=== PATIENT | female | born 2000 | race Caucasian/White ===

== ENCOUNTER 2021-12-08 11:42 | Emergency (ER) | payer BC, SELFPAY ==
[2021-12-08 11:44] VITALS: BP 151/82; PULSE 100; RESP 16; TEMP 35.9; O2SAT 100
[2021-12-08 12:02] VITALS: O2SAT 100
--- NOTE | 2021-12-08 12:08 | ED.URI ---
HPI - URI/Sore Throat General Chief Complaint: Upper Respiratory Infection Stated Complaint: UPPER RESP S/SX Time Seen by Provider: 12/08/21 11:49 Source: patient Mode of arrival: ambulatory Limitations: no limitations History of Present Illness HPI Narrative: This is a 21 year old female that presents to the ER for cold symptoms present over the last couple of days. Reports cough, sore throat, congestion, and fatigue. She is not COVID vaccinated. Reports possible exposure to her coworkers. Denies fever, chest pain or shortness of breath. Review of Systems Review of Systems: CONSTITUTIONAL: Denies fever ENT: Reports congestion, sore throat CARDIOVASCULAR: Denies chest pain RESPIRATORY: Denies dyspnea. All systems reviewed & are unremarkable except as noted in HPI and below PMFSH Past Medical History Medical History (Updated 12/08/21 @ 13:07 by Saundra Zambrano PA-C) No active medical problems Social History Social History (Updated 12/08/21 @ 12:11 by Saundra Zambrano PA-C) Smoking status: Current every day smoker Exam Narrative: GENERAL: Well-appearing, well-nourished, and in no acute distress. HEAD: Normocephalic, atraumatic. EYES: EOMI. ENT: Nares clear, no rhinorrhea or epistaxis. Mucous membranes moist. Oropharynx without tonsillar hypertrophy exudate or other lesions. Bilateral TMs pearly san non-bulging NECK: Supple. No adenopathy or masses. CHEST: Clear to auscultation. No respiratory distress. No wheezes rales or rhonchi HEART: Regular rate and rhythm. No murmur heard. Normal peripheral pulses. EXTREMITIES: Normal range of motion. No edema. SKIN: Warm, dry, no rash. NEURO: No focal deficits. Alert and oriented x3. PSYCH: Normal mood and affect Course Vital Signs Vital signs: Vital Signs Temperature 96.7 F L 12/08/21 11:44 Pulse Rate 100 12/08/21 11:44 Respiratory Rate 16 12/08/21 11:44 Blood Pressure 151/82 H 12/08/21 11:44 Pulse Oximetry 100 12/08/21 11:44 Temperature 96.7 F L 12/08/21 11:44 Pulse Rate 100 12/08/21 11:44 Respiratory Rate 16 12/08/21 11:44 Blood Pressure 151/82 H 12/08/21 11:44 Pulse Oximetry 100 12/08/21 12:02 MDM - URI/Sore Throat MDM Narrative Medical decision making narrative: Patient presents to the ER for cold symptoms present over the last couple of days. She is afebrile and nontoxic-appearing. Lungs are clear on exam. Oxygen saturation is normal on room air. Influenza screen is negative. SARS-CoV-2 was sent. Patient was educated on care of viral infection. She is to follow-up with primary care doctor. She was given warnings to return to the ER Lab Data Attestation: I reviewed the patient's lab results. Labs: Lab Results 12/08/21 Range/Units 12:07 SARS-CoV-2 RNA (RT-PCR) Pending Influenza A Screen Negative Reference Range: Negative Influenza B Screen Negative Reference Range: Negative Critical Care Time Critical Care Time Critical Care Time: No Discharge Plan Discharge Clinical Impression: Person under investigation for COVID-19 Upper respiratory infection Qualifiers: URI type: unspecified viral URI Qualified Code(s): J06.9 - Acute upper respiratory infection, unspecified Patient Disposition: Home, Self-Care Condition: Stable Instructions: Viral Syndrome (ED), COVID-19 (Coronavirus Disease 2019) (ED) Additional Instructions: Return to the emergency department for worsening symptoms, or any other concerns Remain well-hydrated, get plenty of rest. Take Tylenol or Motrin [id number] for pain as needed. Flonase for nasal congestion. Zyrtec for runny nose. Lozenges or Chloraseptic spray for sore throat. You were tested today for coronavirus. It is important that you remain self isolated. Your results will likely be back tomorrow Follow up with primary care doctor Pablo
[2021-12-09 13:26] LABS: SARS-CoV-2 RNA PCR Negative
== END 2021-12-08 13:23 | disposition home or self-care (01) ==
PROVIDERS: Physician Assistant; Emergency Provider Emergency Medicine
DX: J06.9 Acute upper respiratory infection, unspecified (principal); Z20.822 Contact with and (suspected) exposure to COVID-19; F17.200 Nicotine dependence, unspecified, uncomplicated
CPT/HCPCS: 87804; 99283; C9803; U0003; U0005

== ENCOUNTER 2022-02-07 06:16 | Emergency (ER) | payer BC, SELFPAY ==
[2022-02-07] VITALS (34 sets, daily range): BP systolic 79–128; BP diastolic 59–91; PULSE 54–97; RESP 7–33; TEMP 36.8; O2SAT 98–100
[2022-02-07 06:54] LABS: Basophils Absolute Auto 0.1 K/mm3 (0.0-0.1); Basophils Percent Auto 0.5 % (0.2-1.2); Eosinophils Absolute Auto 0.2 K/mm3 (0-0.3); Eosinophils Percent Auto 0.9 % (0-4.4); Hematocrit 49.1 % (37.0-47.0); Hemoglobin 15.8 g/dL (12.0-15.0); Immature Granulocyte Absolute 0.08 K/mm3 (0.00-0.031); Immature Granulocyte Percent A 0.5 % (0-0.5); Lymphocytes Absolute Auto 2.64 K/mm3 (0.9-3.2); Mean Corpuscular HGB Conc 32.2 g/dl (32-36); Mean Corpuscular Hemoglobin 30.5 pg (26-34); Mean Corpuscular Volume 94.8 fl (80-100); Mean Platelet Volume 10.2 fl (7.4-10.4); Monocytes Absolute Auto 0.8 K/mm3 (0.1-0.6); Monocytes Percent Auto 4.4 % (2.6-8.5); Neutrophils Absolute Auto 13.8 K/mm3 (1.3-6.7); Neutrophils Percent Auto 78.7 % (45.5-73.1); Platelet Count Result 292 k/mm3 (150-375); Red Blood Count 5.18 M/mm3 (4.2-5.4); Red Cell Distribution Width 12.6 % (11.5-14.5); White Blood Count 17.6 K/mm3 (4.5-10.0)
[2022-02-07 07:06] LABS: Alanine Aminotransferase 17 U/L (4-35); Albumin Level 4.5 g/dL (3.5-5.1); Alkaline Phosphatase 52 U/L (38-126); Anion Gap 10 mmol/L (8-16); Aspartate Amino Transferase 27 U/L (14-36); Bilirubin,Total 0.5 mg/dL (0.2-1.3); Blood Urea Nitrogen 14 mg/dL (7-17); Calcium 9.1 mg/dL (8.4-10.2); Carbon Dioxide 23 mmol/L (22-30); Chloride 105 mmol/L (98-107); Estimated CRCL calculation 92 ml/min; Estimated Glomerular Filt Rate > 60; Glucose 99 mg/dL (65-110); Lipase 54 U/L (23-300); Sodium 138 mmol/L (137-145)
[2022-02-07] MEDS: ONDANSETRON INJ 4 MG/2 ML VIAL IV PUSH ×2 (07:38→10:13)
[2022-02-07] MEDS: SODIUM CHLORIDE 0.9% IV 1,000 ML 999 ML IV CONT (07:38)
--- NOTE | 2022-02-07 08:03 | ED.NAVMDI ---
HPI - Nausea/Vomiting/Diarrhea General Chief complaint: Nausea/Vomiting/Diarrhea Stated complaint: N/V, leg swelling Time Seen by Provider: 02/07/22 07:08 History of Present Illness HPI Narrative: Patient is a 21-year-old female who presents ER with nausea and vomiting and diarrhea. Nausea and vomiting began yesterday and diarrhea began overnight. 3 days ago patient began having fatigue at work. She has had subjective hot flashes with chills. No documented fevers. Unvaccinated against Covid. No runny nose or sore throat or productive cough. No dyspnea. No urinary frequency urgency or dysuria. No known sick contacts. Patient reports she has been working 13-hour shifts and at the end the day she has some mild swelling in her legs but goes away when lying down. Related Data Allergies Allergy/AdvReac Type Severity Reaction Status Date / Time No Known Allergies Allergy Verified 02/07/22 06:38 Review of Systems Review of Systems: All systems reviewed & are unremarkable except as noted in HPI and below Constitutional: Constitutional: Reports chills, Reports fatigue and Reports fever(s) ENT: Denies nasal congestion and Denies sore throat Cardiovascular: Cardiovascular: Denies chest pain and Denies radiating jaw, neck or arm pain Respiratory: Respiratory: Denies cough and Denies dyspnea Gastrointestinal: Gastrointestinal: Denies abdominal pain, Reports diarrhea, Reports nausea and Reports vomiting Genitourinary: Genitourinary: Denies nocturia, Denies dysuria and Denies flank pain PMFSH Past Medical History Medical History (Updated 02/07/22 @ 10:42 by Stewart Fajardo MD) Healthy female adult No active medical problems Surgical History Surgical History (Updated 02/07/22 @ 08:05 by Stewart Fajardo MD) No history of previous surgery Social History Social History (Updated 12/08/21 @ 12:11 by Saundra Zambrano PA-C) Smoking status: Current every day smoker Exam Narrative: GENERAL: Well-appearing, well-nourished, and in no acute distress. HEAD: Normocephalic, atraumatic. EYES: PERRL and EOMI. CHEST: Clear to auscultation. No respiratory distress. HEART: Regular rate and rhythm. Normal peripheral pulses. ABDOMEN: Soft, nontender, nondistended, normal active bowel sounds. EXTREMITIES: Normal range of motion. No edema. SKIN: Warm, dry, no rash. NEURO: Alert and oriented x3. PSYCH: Normal mood and affect. Course Course Emergency Course: Patient feeling improved. White count felt to be reactive related to vomiting and dehydration. Zofran administered with satisfactory results. Discharge home. Vital Signs Vital signs: Vital Signs Temperature 98.3 F 02/07/22 06:30 Pulse Rate 75 02/07/22 06:30 Respiratory Rate 16 02/07/22 06:30 Blood Pressure 112/68 02/07/22 06:30 Pulse Oximetry 100 02/07/22 06:30 Temperature 98.3 F 02/07/22 06:30 Pulse Rate 89 02/07/22 10:36 Respiratory Rate 33 H 02/07/22 10:36 Blood Pressure 103/61 02/07/22 10:16 Pulse Oximetry 100 02/07/22 10:01 MDM - Nausea/Vomiting/Diarrhea Lab Data Result diagrams: 02/07/22 06:47 02/07/22 06:47 Labs: Lab Results 02/07/22 02/07/22 02/07/22 Range/Units 06:47 06:47 07:44 WBC 17.6 H (4.5-10.0) K/mm3 RBC 5.18 (4.2-5.4) M/mm3 Hgb 15.8 H (12.0-15.0) g/dL Hct 49.1 H (37.0-47.0) % MCV 94.8 (80-100) fl MCH 30.5 (26-34) pg MCHC 32.2 (32-36) g/dl RDW 12.6 (11.5-14.5) % Plt Count 292 (150-375) k/mm3 MPV 10.2 (7.4-10.4) fl Immature Gran % (Auto) 0.5 (0-0.5) % Neut % (Auto) 78.7 H (45.5-73.1) % Lymph % (Auto) 15.0 L (18.3-44.2) % [place] % (Auto) 4.4 (2.6-8.5) % Eos % (Auto) 0.9 (0-4.4) % Baso % (Auto) 0.5 (0.2-1.2) % Lymph # (Auto) 2.64 (0.9-3.2) K/mm3 [place] # (Auto) 0.8 H (0.1-0.6) K/mm3 Eos # (Auto) 0.2 (0-0.3) K/mm3 Baso # (Auto) 0.1 (0.0-0.1) K/mm3 Abs Immat Gran (auto)
[2022-02-07 08:07] LABS: Add Urine Microscopic? YES; Appearance Urine Cloudy (Clear); Bilirubin Urine Negative (Negative); Blood Urine Negative (Negative); Color Urine Yellow (Yellow); Glucose Urine UA Negative (Negative); Ketones Urine Trace mg/dL (Negative); Leukocyte Esterase Ur Trace LEU/UL (Negative); Mucus Urine Heavy /lpf; Nitrate Urine Negative (Negative); Protein Urine Negative (Negative); Specific Grav Ur 1.028 (1.001-1.035); Squamous Epithelial Cell Urine Many /hpf (Few); Urobilinogen Urine Negative mg/dL (<2.0)
[2022-02-07 09:00] LABS: SARS-CoV-2 RNA PCR Negative
== END 2022-02-07 10:51 | disposition home or self-care (01) ==
PROVIDERS: Emergency Medicine; Emergency Provider Emergency Medicine
DX: K52.9 Noninfective gastroenteritis and colitis, unspecified (principal); F17.200 Nicotine dependence, unspecified, uncomplicated; Z20.822 Contact with and (suspected) exposure to COVID-19
CPT/HCPCS: 36415; 51701; 80053; 81001; 81025; 83690; 85025; 87086; 87088; 96361; 96374; 96376; 99284; C9803; J2405; J7030; U0003; U0005